=== PATIENT | female | born 1960 | race Caucasian/White ===

== ENCOUNTER 2022-09-01 09:51 | Emergency (ER) | payer MEDICARE ==
[2022-09-01 11:20] LABS: BASO % 0.6 % (0.0-1.0); EOS % 0.6 % (1.0-4.0); HEMATOCRIT 36.9 % (37.0-47.0); LYMPH % 15.2 % (27.0-41.0); MEAN CELL VOLUME 94.9 fl (81.0-99.0); MEAN CORPUSCULAR HGB 32.4 pg (27.0-31.0); MEAN CORPUSCULAR HGB CONC 34.1 g/dl (33.0-37.0); MEAN PLATELET VOLUME 10.3 fl (9.6-12.3); MONO # 0.3 10*3/uL (0.1-1.0); MONO % 4.2 % (3.0-9.0); NEUT # 5.3 10*3/uL (2.3-7.9); NEUT % 79.1 % (47.0-73.0); PLATELET COUNT AUTOMATED 217 10*3/uL (130-400); RED BLOOD COUNT 3.89 10*6/uL (4.10-5.10); RED CELL DISTRI WIDTH 13.2 % (0-14.5); WHITE BLOOD COUNT 6.7 10*3/uL (4.8-10.8)
[2022-09-01 11:38] LABS: POTASSIUM 3.9 mmol/L (3.4-5.1); TOTAL PROTEIN 7.3 gm/dL (6.0-8.0)
[2022-09-01] MEDS ORDERED: PREGABALIN50 MG PO (11:41)
[2022-09-01] MEDS ORDERED: PANTOPRAZOLE SO40 MG PO (11:42)
[2022-09-01] MEDS ORDERED: VERAPAMIL HCL120 M2 PO (11:42)
[2022-09-01] MEDS ORDERED: 'XANAX1 MG PO (11:43)
[2022-09-01] MEDS ORDERED: ARIPIPRAZOLE20 MG PO (11:44)
[2022-09-01] MEDS ORDERED: BUPROPION XL300 MG PO (11:44)
[2022-09-01] MEDS ORDERED: BENICAR HCT 401 EAC1 PO (11:45)
[2022-09-01] MEDS ORDERED: LEVOTHYROXINE75 MCG PO (11:45)
[2022-09-01] MEDS ORDERED: DOXYCYCLINE HY100 M3 PO (12:16)
[2022-09-01] MEDS ORDERED: PREDNISONE10 MG PO (12:16)
[2022-09-01] MEDS ORDERED: PROVENTIL HFA6.7 GM INH (12:16)
== END 2022-09-01 12:32 | disposition home or self-care (01) ==
LOC: ED 09:51
PROVIDERS: Family Medicine
DX: J44.1 Chronic obstructive pulmonary disease with (acute) exacerbation (principal); Z88.0 Allergy status to penicillin; Z88.2 Allergy status to sulfonamides